=== PATIENT | male | born 1975 | race Hispanic/Latino ===

== ENCOUNTER 2016-09-21 14:49 | Emergency (ER) | payer MEDICARE, MEDICAID ==
[2016-09-21 16:01] LABS: #Eosinphils 0.1 thou/uL (0.0-0.7); #Lymphocytes 0.6 thou/uL (1.20-3.40); #Monocytes 0.3 thou/uL (0.11-0.59); %Basophils 0.6 % (0.0-1.0); %Eosinophils 2.8 % (0.0-10.0); %Lymphocytes 12.3 % (21.0-51.0); %Monocytes 5.6 % (0.0-10.0); %Neutrophils 78.8 % (42.0-75.0); Hemoglobin 6.3 g/dL (14.0-18.0); Mean Corpuscular HGB CONC 31.1 g/dL (32.0-36.0); Mean Corpuscular Hemoglobin 27.8 pg (27.0-31.0); Mean Corpuscular Volume 89.4 fl (80.0-94.0); Mean Platelet Volume 10.8 fL (7.4-10.4); Platelet Count 46 thou/uL (130-400); RBC Distribution Width 16.4 % (11.5-14.5); Red Blood Cell (RBC) Count 2.28 mill/uL (4.70-6.10); White Blood Cell (WBC) Count 5.1 thou/uL (4.8-10.8)
[2016-09-21 16:21] LABS: ALT (SGPT) 7 U/L (8-55); AST (SGOT) 13 U/L (5-34); Albumin 3.5 g/dL (3.5-5.0); Alkaline Phosphatase 156 U/L (40-150); Anion Gap 25 mmol/L (10-20); BUN (Urea Nitrogen) 69 mg/dL (8.9-20.6); Bilirubin, Total 0.6 mg/dL (0.2-1.2); CK (CPK) 395 U/L (30-200); Calc. Creatinine Clearance 0 mL/min (70-130); Calcium 7.1 mg/dL (7.8-10.44); Carbon Dioxide 15 mmol/L (22-29); Chloride 95 mmol/L (98-107); Estimated GFR-MDRD 5; Globulin 3.1 g/dL (2.4-3.5); Glucose 196 mg/dL (70-105); Potassium 5.5 mmol/L (3.5-5.1); Protein, Total 6.6 g/dL (6.0-8.3); Sodium 129 mmol/L (136-145)
[2016-09-21 16:28] LABS: Troponin I 0.033 ng/mL (< 0.028)
[2016-09-21 16:30] LABS: Anisocytosis SLIGHT = 6-15 cells (100X) (0-5/hpf); Hypochromia SLIGHT = 6-15 cells (100X) (0-5/hpf); MDiff Complete? YES; PLT Morphology Comment Appears Decreased
[2016-09-21 16:47] LABS: CKMB 7.9 ng/mL (0-6.6)
--- NOTE | 2016-09-21 16:49 | RAD ---
PORTABLE CHEST: History: Shortness of breath. Comparison: 09-08-16 FINDINGS: Heart size is enlarged. The pulmonary vessels are engorged. No overt interstitial edema noted. IMPRESSION: Cardiomegaly with pulmonary vasculature engorgement. POS: [facility]
== END 2016-09-21 17:25 | disposition short-term general hospital (02) ==
LOC: NAV ERS 14:49
DX: I12.0 Hypertensive chronic kidney disease with stage 5 chronic kidney disease or end stage renal disease (principal); N18.6 End stage renal disease; I25.10 Atherosclerotic heart disease of native coronary artery without angina pectoris; I25.2 Old myocardial infarction; E11.9 Type 2 diabetes mellitus without complications; F32.9 Major depressive disorder, single episode, unspecified; F41.9 Anxiety disorder, unspecified; Z79.4 Long term (current) use of insulin; Z79.02 Long term (current) use of antithrombotics/antiplatelets; Z79.899 Other long term (current) drug therapy
CPT/HCPCS: 36416; 71010; 80053; 82553; 83880; 84484; 85025; 93005

== ENCOUNTER 2016-10-19 19:25 | Emergency (ER) | payer MEDICARE, MEDICAID ==
[2016-10-19] MEDS ORDERED: Furosemide 40 MG/4 ML VIAL ONE (19:42)
[2016-10-19] MEDS ORDERED: methylPREDNISolone Sod Succ/PF 125 MG/2 ML VIAL ONE (19:42)
[2016-10-19] MEDS ORDERED: Furosemide 40 MG TAB ONE ×2 (19:42→20:26)
[2016-10-19] MEDS ORDERED: Lidocaine 1% 20 ML MDV ONE (20:10)
[2016-10-19 20:20] LABS: #Eosinphils 0.2 thou/uL (0.0-0.7); #Lymphocytes 0.5 thou/uL (1.20-3.40); #Monocytes 0.4 thou/uL (0.11-0.59); #Neutrophils 7.9 thou/uL (1.40-6.50); %Basophils 0.1 % (0.0-1.0); %Eosinophils 1.7 % (0.0-10.0); %Lymphocytes 5.4 % (21.0-51.0); %Monocytes 4.1 % (0.0-10.0); %Neutrophils 88.7 % (42.0-75.0); Hemoglobin 7.9 g/dL (14.0-18.0); Mean Corpuscular HGB CONC 31.6 g/dL (32.0-36.0); Mean Corpuscular Hemoglobin 27.6 pg (27.0-31.0); Mean Corpuscular Volume 87.4 fl (80.0-94.0); Mean Platelet Volume 11.5 fL (7.4-10.4); Platelet Count 51 thou/uL (130-400); RBC Distribution Width 16.4 % (11.5-14.5); Red Blood Cell (RBC) Count 2.87 mill/uL (4.70-6.10); White Blood Cell (WBC) Count 8.9 thou/uL (4.8-10.8)
[2016-10-19 20:45] LABS: Anion Gap 21 mmol/L (10-20); BUN (Urea Nitrogen) 42 mg/dL (8.9-20.6); Calc. Creatinine Clearance 0 mL/min (70-130); Calcium 7.9 mg/dL (7.8-10.44); Carbon Dioxide 19 mmol/L (22-29); Chloride 95 mmol/L (98-107); Estimated GFR-MDRD 6; Glucose 210 mg/dL (70-105); Potassium 5.4 mmol/L (3.5-5.1); Sodium 130 mmol/L (136-145)
[2016-10-19 20:49] LABS: Troponin I 0.042 ng/mL (< 0.028)
[2016-10-19 20:58] LABS: CKMB 7.2 ng/mL (0-6.6)
[2016-10-19] MEDS ORDERED: Fentanyl 100 MCG/2 ML VIAL ONE (21:08)
--- NOTE | 2016-10-19 22:26 | RAD ---
EXAM: ONE VIEW CHEST: COMPARISON: 09/21/16. HISTORY: Obese patient. Dyspnea. Double amputee. FINDINGS: Suboptimal evaluation due to technique. Heart appears to be enlarged. Bibasilar pleural and parenc hymal changes could not be excluded. Limited evaluation for pneumothorax. IMPRESSION: Cardiomegaly. Bibasilar pleural and parenchymal changes. Correlate for congestive heart failure. POS: [facility]
== END 2016-10-19 22:43 | disposition short-term general hospital (02) ==
LOC: NAV ERS 19:25
DX: I13.2 Hypertensive heart and chronic kidney disease with heart failure and with stage 5 chronic kidney disease, or end stage renal disease (principal); I50.9 Heart failure, unspecified; N18.6 End stage renal disease; D63.1 Anemia in chronic kidney disease; D69.6 Thrombocytopenia, unspecified; I25.2 Old myocardial infarction; I25.10 Atherosclerotic heart disease of native coronary artery without angina pectoris; E11.9 Type 2 diabetes mellitus without complications; F32.9 Major depressive disorder, single episode, unspecified; F41.9 Anxiety disorder, unspecified; Z99.2 Dependence on renal dialysis; Z79.4 Long term (current) use of insulin; Z79.02 Long term (current) use of antithrombotics/antiplatelets; Z79.899 Other long term (current) drug therapy
CPT/HCPCS: 36416; 71010; 80048; 82553; 83880; 84484; 85025; 93005; 94640; 94760; 96374; 96375; J1940; J2001; J2930; J3010; J7620